=== PATIENT | female | born 1985 | race Hispanic/Latino ===

== ENCOUNTER 2021-01-08 12:37 | Emergency (ER) | payer OTHER, MEDICAID, SELFPAY ==
[2021-01-08 12:45] VITALS: BP 132/79; PULSE 90; RESP 13; TEMP 37.2; O2SAT 98; BMI 33.6
[2021-01-08 13:28] LABS: Add Manual Diff / Slide Review NO; Basophils Absolute Auto 0 /uL (0-100); Basophils Percent Auto 0.4 % (0-2); Eosinophils Absolute Auto 0 /uL (0-450); Eosinophils Percent Auto 0.3 % (2-4); Hematocrit 39.7 % (36-46); Hemoglobin 13.3 g/dL (12.0-16.0); Lymphocytes Absolute Auto 1800 /uL (1100-4500); Lymphocytes Percent Auto 36.3 % (25-40); Mean Corpuscular HGB Conc 33.5 % (30-36); Mean Corpuscular Volume 95.4 fL (80-100); Monocytes Absolute Auto 400 /uL (0-900); Monocytes Percent Auto 7.1 % (3-14); Neutrophils Absolute Auto 2800 /uL (1500-7000); Neutrophils Percent Auto 55.9 % (50-75); Platelet Count 253 X10^3/uL (150-400); Red Blood Cell Count 4.16 X10^6/uL (4.0-5.2); Red Cell Distribution Width 13.8 % (11.6-14.8)
[2021-01-08 13:31] LABS: INR 1.1 (0.9-1.3)
[2021-01-08 13:34] LABS: PTT Partial Thromboplastin Tim 34 SECONDS (26.4-36.2)
[2021-01-08 13:36] LABS: Alanine Aminotransferase 43 IU/L (<35); Albumin 4.4 g/dL (3.5-5.0); Albumin Globulin Ratio 1.4 (1.0-2.8); Alkaline Phosphatase 60 U/L (38-126); Aspartate Aminotransferase 59 IU/L (14-36); Bilirubin Total 0.1 mg/dL (0.2-1.3); Blood Urea Nitrogen 11 mg/dL (7-17); Calcium 8.8 mg/dL (8.4-10.2); Carbon Dioxide 25 mmol/L (22-32); Chloride 105 mmol/L (98-107); Estimated Glomerular Filt Rate > 60.0 mL/min (>60); Globulin 3.1 g/dL (1.7-4.1); Glucose 115 mg/dL (70-100); HEMOLYSIS < 15 (0-50); Potassium 3.6 mmol/L (3.4-5.1); Sodium 141 mmol/L (137-145); Total Protein 7.5 g/dL (6.3-8.2)
--- NOTE | 2021-01-08 13:36 | ED.GIBLEED ---
HPI - GI Bleed General Chief complaint: GI Bleed Stated complaint: Red Diarrhea, trouble breathing Time Seen by Provider: 01/08/21 13:34 Source: patient Mode of arrival: Ambulatory Limitations: no limitations History of Present Illness HPI Narrative: 35F smoker with history of fibromyalgia presents with her significant other and various complaints. She is visibly quite nervous and states she developed left anterior chest pain with radiation around to her left shoulder that started when lifting heavy objects at work. The pain is sharp and stabbing, improves with rest and worsens with motion, palpation and deep breath. She is not short of breath, she has had no cough. She is not dizzy, weak or lightheaded. She has had no fever or chills. Additionally she states she has got pain over her left kidney and had a kidney infection about 2 months ago and is concerned this may be happening again. She denies any dysuria, frequency or urgency. She has had no obvious hematuria. She denies vaginal bleeding or discharge. Finally, she states that she had a bowel movement with what appeared to be blood earlier today. She has never had this before, she has not had it again, she denies any abdominal pain, diarrhea or cramping. She denies any history of hemorrhoids. She denies the use of blood thinners. She has had no and medication or dietary change. MD complaint: blood on toilet paper Onset (ago): hour(s) Severity: mild Treatments Prior to Arrival: none Related Data Previous Rx's Medication Instructions Recorded ketorolac 10 mg PO Q6H PRN #14 tab 01/08/21 Allergies Allergy/AdvReac Type Severity Reaction Status Date / Time No Known Drug Allergies Allergy Verified 01/08/21 12:49 Review of Systems Constitutional Constitutional: Denies chills, Denies fatigue, Denies fever(s), Denies frequent falls, Denies lethargy and Denies weakness Eyes Eyes: Denies change in vision, Denies eye discharge, Denies irritation and Denies loss of vision ENT Ears, Nose, Mouth, and Throat: Denies change in voice, Denies dizziness, Denies neck pain, Denies sore throat and Denies throat swelling Cardiovascular Cardiovascular: Reports chest pain, Denies irregular heart rhythm, Denies lightheadedness, Denies palpitations, Denies dyspnea, Denies dyspnea on exertion and Denies orthopnea Respiratory Respiratory: Denies cough, Reports pain on inspiration, Denies dyspnea, Denies dyspnea on exertion and Denies wheezing Gastrointestinal Gastrointestinal: Denies abdominal pain, Denies change in bowel habits, Denies diarrhea, Denies nausea and Denies vomiting Comments: Bloody stool Musculoskeletal Musculoskeletal: Reports back pain, Denies neck pain and Denies numbness Integumentary/Breasts Skin/Breast: Denies pruritus, Denies erythema, Denies rash and Denies wounds Neurologic Neurologic: Denies behavioral changes, Denies confusion, Denies dizziness, Denies frequent falls, Denies loss of vision, Denies numbness and Denies weakness Psychiatric Psychiatric: Denies anxiety, Denies behavioral changes, Denies confusion, Denies depression, Denies homicidal ideation and Denies suicidal ideation Endocrine Endocrine: Denies fatigue, Denies flushing and Denies palpitations Hematologic/Lymphatic Hematologic/Lymphatic: Denies easy bruising Allergic/Immunologic Allergic/Immunologic: Denies urticaria, Denies throat swelling and Denies wheezing Patient History Social History Smoking Status: Current every day smoker Smoking Status: Current every day smoker alcohol intake frequency: holidays/special occasions only Substance Use Type: does not use Exam Narrative Exam Narrative: GENERAL: [35] year old patient appears stated age. Well-nourished, well-developed patient, in mild distress. HEAD: Atraumatic. Normocephalic. EYES: Pupils equal round and reactive. Extraocular motions intact. No scleral icterus. No injection or drainage. ENT: Nose without bleeding, purulent drainage. Throat without erythema, tonsillar hypertrophy or exudate. Airway patent. NECK: Trachea midline. Non tender CARDIOVASCULAR: Regular rate and rhythm without murmurs, gallops, or rubs. RESPIRATORY: Clear to auscultation. Breath sounds equal bilaterally. No wheezes, rales, or rhonchi. GASTROINTESTINAL: Abdomen soft, non-tender, nondistended. RECTAL: No bleeding, pain, hemorrhoid, fissure noted on exam. 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 BACK: Nontender without deformity or crepitance. No flank tenderness. NEURO: AOx3. SKIN: No rash or erythema of visible areas Initial Vital Signs Initial Vital Signs: Vital Signs Temperature 98.9 F 04/02/21 12:45 Pulse Rate 90 01/08/21 12:45 Respiratory Rate 13 01/08/21 12:45 Blood Pressure 132/79 01/08/21 12:45 Pulse Oximetry 98 01/08/21 12:45 Course Orders Ordered: ED Orders 01/08/21 12:52 EKG-12 Lead Stat 01/08/21 12:58 Complete Blood Count AUTO DIFF Stat Comprehensive Metabolic Panel Stat Partial Thromboplastin Time Stat Prothrombin Time INR Stat 01/08/21 13:41 Lipase Stat 01/08/21 13:51 XR chest 2V Stat 01/08/21 14:04 Urine Microscopic Stat Discontinued Medications Ketorolac Tromethamine (Ketorolac 60 Mg/2 Ml Vial) 15 mg IV NOW ONE Stop: 01/08/21 13:52 Last Admin: 01/08/21 14:09 Dose: 15 mg Documented by: ANGELO Vital Signs Vital signs: Vital Signs - 8 hr 01/08/21 12:45 01/08/21 14:46 01/08/21 14:47 Temperature 98.9 F Pulse Rate 90 80 80 Respiratory Rate 13 Blood Pressure 132/79 130/82 Pulse Oximetry 98 94 92 MDM - GI Bleed Lab Data Result diagrams: 01/08/21 12:58 01/08/21 12:58 Labs: Lab Results 01/08/21 01/08/21 01/08/21 Range/Units 12:58 12:58 12:58 WBC 5.0 (4.5-11.0) X10^3/uL RBC 4.16 (4.0-5.2) X10^6/uL Hgb 13.3 (12.0-16.0) g/dL Hct 39.7 (36-46) % MCV 95.4 (80-100) fL MCH 32.0 (26-34) PG MCHC 33.5 (30-36) % RDW 13.8 (11.6-14.8) % Plt Count 253 (150-400) X10^3/uL Neut % (Auto) 55.9 (50-75) % Lymph % (Auto) 36.3 (25-40) % [place] % (Auto) 7.1 (3-14) % Eos % (Auto) 0.3 L (2-4) % Baso % (Auto) 0.4 (0-2) % Neut # (Auto) 2800 (4850-9923) /uL Lymph # (Auto) 1800 (8292-4482) /uL [place] # (Auto) 400 (0-900) /uL Eos # (Auto) 0 (0-450) /uL Baso # (Auto) 0 (0-100) /uL PT 13.0 H (10.1-12.7) SECONDS INR 1.1 (0.9-1.3) APTT 34 (26.4-36.2) SECONDS Sodium 141 (137-145) mmol/L Potassium 3.6 (3.4-5.1) mmol/L Chloride 105 (98-107) mmol/L Carbon Dioxide 25 (22-32) mmol/L BUN 11 (7-17) mg/dL Creatinine 0.50 L (0.52-1.04) mg/dL Estimated GFR > 60.0 (>60) mL/min BUN/Creatinine Ratio 22.0 (6-22) Glucose 115 H (70-100) mg/dL Calcium 8.8 (8.4-10.2) mg/dL Total Bilirubin 0.1 L (0.2-1.3) mg/dL AST 59 H (14-36) IU/L ALT 43 H (<35) IU/L Alkaline Phosphatase 60 (38-126) U/L Total Protein 7.5 (6.3-8.2) g/dL Albumin 4.4 (3.5-5.0) g/dL Globulin 3.1 (1.7-4.1) g/dL Albumin/Globulin Ratio 1.4 (1.0-2.8) Urine RBC (0-5/HPF) Urine WBC (0-5/HPF) Ur Squamous Epith Cells (0-5/HPF) Urine Bacteria (None) Ur Culture Indicated? 01/08/21 Range/Units 14:04 WBC (4.5-11.0) X10^3/uL RBC (4.0-5.2) X10^6/uL Hgb (12.0-16.0) g/dL Hct (36-46) % MCV (80-100) fL MCH (26-34) PG MCHC (30-36) % RDW (11.6-14.8) % Plt Count (150-400) X10^3/uL Neut % (Auto) (50-75) % Lymph % (Auto) (25-40) % [place] % (Auto) (3-14) % Eos % (Auto) (2-4) % Baso % (Auto) (0-2) % Neut # (Auto) (3583-7898) /uL Lymph # (Auto) (8976-7802) /uL [place] # (Auto) (0-900) /uL Eos # (Auto) (0-450) /uL Baso # (Auto) (0-100) /uL PT (10.1-12.7) SECONDS INR (0.9-1.3) APTT (26.4-36.2) SECONDS Sodium (137-145) mmol/L Potassium (3.4-5.1) mmol/L Chloride (98-107) mmol/L Carbon Dioxide (22-32) mmol/L BUN (7-17) mg/dL Creatinine (0.52-1.04) mg/dL Estimated GFR (>60) mL/min BUN/Creatinine Ratio (6-22) Glucose (70-100) mg/dL Calcium (8.4-10.2) mg/dL Total Bilirubin (0.2-1.3) mg/dL AST (14-36) IU/L ALT (<35) IU/L Alkaline Phosphatase (38-126) U/L Total Protein (6.3-8.2) g/dL Albumin (3.5-5.0) g/dL Globulin (1.7-4.1) g/dL Albumin/Globulin Ratio (1.0-2.8) Urine RBC 1-5/hpf (0-5/HPF) Urine WBC 0-1/hpf (0-5/HPF) Ur Squamous Epith Cells 1-5 /hpf (0-5/HPF) Urine Bacteria Few (2-10) H (None) Ur Culture Indicated? Cult not indicated Point of Care Testing Test Results Negative Stool Occult Blood Negative Urine Dip Bedside Urine Glucose Negative Bedside Urine Bilirubin - Negative Bedside Urine Ketone - Negative Urine Specific [place] 1.010 Bedside Urine Occult Blood + Bedside Urine pH 6.0 Bedside Urine Protein - Negative Bedside Urine Urobilinogen - Negative Bedside Urine Nitrite - Negative Bedside Urine Leukocytes +/- 15 Esterase Imaging Data Chest x-ray: My Impression: NAP Radiologist's Impression: [address] [id number] ReportSigned Patient: Carlotta Shabazz#: [id number]: 1985Acct:[id number]/Sex: 35 / FDate of Service: 01/08/21Loc: EDAccession Number: [id number] Procedure: XR chest 2V Ordering Provider: Fantasma Arriaga D.O. PROCEDURE: XR CHEST 2V INDICATIONS: chest and back pain TECHNIQUE: 2 views of the chest were acquired. COMPARISON: None. FINDINGS: Surgical changes and devices: None. Lungs and pleura: Lungs are clear. No pleural effusions or pneumothorax. Mediastinum: Mediastinal contours are normal. Heart size is normal. Bones and chest wall: No suspicious bony abnormalities. Soft tissues appear unremarkable. IMPRESSION: No acute process. Dictated by: Maria Fernanda Crockett M.D. on 01/08/2021 at 14:10 Approved by: Maria Fernanda Crockett M.D. on 01/08/2021 at 14:11 ECG Data Interpretation: EKG is normal sinus rhythm rate [ 91] and free of any signs of ischemia or ectopy. No ST segmental elevation or depression. No T wave inversions MDM Narrative Medical decision making narrative: Patient reports bright red blood with a bowel movement in the absence of any pain or ongoing symptoms. Labs are very reassuring, her abdomen is soft rectal exam demonstrates no ongoing bleeding. Perhaps a small, resolved diverticular bleed or other ROS large ongoing bleed. Patient's left anterior chest pain sharp, stabbing, pinpoint and reproducible with palpation, inspiration and motion. EKG is nonischemic and chest x-ray is unremarkable. This is most likely inflammatory or muscular skeletal issue. Multiple causes of chest pain considered including MT, PE, pneumothorax, pneumonia, aortic dissection, and pleurisy. Patient reports no radiation, no diaphoresis, no provocation with exertion, and no vomiting. Patient and family given return precautions and questions answered to their apparent satisfaction Discharge Plan Departure Patient Disposition: Home Clinical Impression: Acute chest wall pain, Bright red rectal bleeding Instructions: DI for Atypical Chest Pain, Gastrointestinal Bleeding Activity Restrictions/Additional Instructions: *You have been diagnosed with [chest wall pain with transient painless rectal bleeding. Blood work, images and physical exam are very reassuring] *What to do: *Take medications as directed: Anti-inflammatories such as ibuprofen or Aleve will help with your chest discomfort. *Follow up with your primary care provider in 2-3 days, call for an appointment. Let them know you were seen in the Emergency Department and that we ask that you be seen in follow up *Return to ER if you should have any new, worsening or concerning symptoms, such as [increasing pain, trouble breathing, fever greater than 101 F, increased bleeding, lightheadedness or other bothersome symptoms] Prescriptions: New ketorolac 10 mg tablet 10 mg PO Q6H PRN (Reason: pain) Qty: 14 RF: 0 Stand Alone Forms: Work Release Note
--- NOTE | 2021-01-08 13:43 | PC.NURSE ---
Pt OOB walking around department. states her L upper chest is in alot of pain. reproducible and started after lifting boxes at work yesterday. EKG obtained at triage. pt tearful and getting aggressive with staff. states i dont know why im not getting the attention the vomiting girl behind me is getting. Dr Arriaga made aware.
--- NOTE | 2021-01-08 13:51 | DI.RAD.S_ITS ---
PROCEDURE: XR CHEST 2V INDICATIONS: chest and back pain TECHNIQUE: 2 views of the chest were acquired. COMPARISON: None. FINDINGS: Surgical changes and devices: None. Lungs and pleura: Lungs are clear. No pleural effusions or pneumothorax. Mediastinum: Mediastinal contours are normal. Heart size is normal. Bones and chest wall: No suspicious bony abnormalities. Soft tissues appear unremarkable. IMPRESSION: No acute process. Dictated by: Maria Fernanda Crockett M.D. on 01/08/2021 at 14:10 Approved by: Maria Fernanda Crockett M.D. on 01/08/2021 at 14:11
[2021-01-08] MEDS: KETOROLAC 60 MG/2 ML VIAL 15 MG IV (14:09)
[2021-01-08 14:45] LABS: Bacteria Urine Few (2-10); Culture Indicated Urine Cult Not Indicated; RBC Urine 1-5/HPF (0-5/HPF); Squamous Epithelial Cell Urine 1-5 /HPF (0-5/HPF); WBC Urine 0-1/HPF (0-5/HPF)
[2021-01-08 14:46] VITALS: PULSE 80; O2SAT 94
[2021-01-08 14:47] VITALS: BP 130/82; PULSE 80; O2SAT 92
[2021-01-08 23:44] LABS: Lipase 121 U/L (23-300)
== END 2021-01-08 15:05 | disposition home or self-care (01) ==
PROVIDERS: Emergency Medicine; Emergency Provider Emergency Medicine
DX: K62.5 Hemorrhage of anus and rectum (principal); R07.89 Other chest pain
CPT/HCPCS: 36415; 71046; 80053; 81003; 81015; 81025; 82272; 83690; 85025; 85610; 85730; 93005; 96374; 99284; J1885

== ENCOUNTER 2023-09-16 13:08 | Emergency (ER) | payer OTHER, MEDICAID, SELFPAY ==
[2023-09-16 13:30] VITALS: BP 105/75; PULSE 70; RESP 15; TEMP 36.8; O2SAT 97; BMI 31.6
--- NOTE | 2023-09-16 13:31 | ED.EAR ---
HPI - Ear Problem <Howard Cruz PA-C - Last Filed: 09/16/23 14:50> General Chief complaint: Upper Respiratory Symptoms Stated complaint: ear ache rt Time Seen by Provider: 09/16/23 13:30 History of Present Illness HPI Narrative: This is a 37-year-old female presents emergency department due to a mild cough, sinus congestion, runny nose, and mild right ear pain for the last 3 days. Denies any fevers, chest pain, shortness of breath, abdominal pain, or any other concerning signs or symptoms. Has not tested for COVID or flu. Related Data Previous Rx's Medication Instructions Recorded ketorolac 10 mg tablet 10 mg PO Q6H PRN pain #14 tabs 01/08/21 Allergies Allergy/AdvReac Type Severity Reaction Status Date / Time baclofen Allergy Verified 09/16/23 13:40 Review of Systems <Howard Cruz PA-C - Last Filed: 09/16/23 14:50> Review of Systems Narrative: GENERAL: Denies chills, fatigue, malaise, fever, sweats. HEENT: Reports sinus congestion, rhinorrhea, right ear pain Denies sore throat, difficulty swallowing, dizziness. RESPIRATORY: Denies dyspnea, cough, wheezing, hemoptysis, sputum. CARDIOVASCULAR: Denies chest pain, palpitations, orthopnea, edema, GASTROINTESTINAL: Denies nausea, vomiting, abdominal pain, diarrhea, constipation, melena. : Denies dysuria, frequency, incontinence, hematuria, urinary retention. MUSCULOSKELETAL: denies weakness, joint pain, or bony pain SKIN: Denies rash, skin lesions, or other NEUROLOGIC: Denies weakness, headache, numbness, change in speech, confusion, seizures, incoordination. PSYCHIATRIC: No concerning psychosocial issues. 12 point review of systems is negative except for those stated above Patient History <Howard Cruz PA-C - Last Filed: 09/16/23 14:50> Social History Smoking Status: Current every day smoker Smoking Status: Current every day smoker alcohol intake frequency: holidays/special occasions only Substance Use Type: does not use Exam <MATTHEW Garcia Last Filed: 09/16/23 14:50> Narrative Exam Narrative: GENERAL: Well-developed patient, in mild distress. HEAD: Atraumatic. Normocephalic. EYES: Pupils equal round and reactive. Extraocular motions intact. No scleral icterus. No injection or drainage. ENT: Nose without bleeding, purulent drainage. Throat without erythema, tonsillar hypertrophy or exudate. Airway patent. Right TM is not erythematous, mild dull bulging. NECK: Trachea midline. Non tender CARDIOVASCULAR: Regular rate and rhythm without murmurs, gallops, or rubs. RESPIRATORY: Clear to auscultation. Breath sounds equal bilaterally. No wheezes, rales, or rhonchi. GASTROINTESTINAL: Abdomen soft, non-tender, nondistended. EXTREMITIES: No edema or joint tenderness. BACK: Nontender without deformity or crepitance. No flank tenderness. NEURO: AOx3. SKIN: No rash or erythema of visible areas Initial Vital Signs Initial Vital Signs: Vital Signs Temperature 98.2 F 09/16/23 13:30 Pulse Rate 70 09/16/23 13:30 Respiratory Rate 15 09/16/23 13:30 Blood Pressure 105/75 09/16/23 13:30 Pulse Oximetry 97 09/16/23 13:30 Oxygen Delivery Method Room Air 09/16/23 13:30 <Frannie Edward DO - Last Filed: 09/21/23 10:00> Initial Vital Signs Initial Vital Signs: Vital Signs Temperature 98.2 F 09/16/23 13:30 Pulse Rate 70 09/16/23 13:30 Respiratory Rate 15 09/16/23 13:30 Blood Pressure 105/75 09/16/23 13:30 Pulse Oximetry 97 09/16/23 13:30 Oxygen Delivery Method Room Air 09/16/23 13:30 Course <Howard Cruz PA-C - Last Filed: 09/16/23 14:50> Orders Ordered: ED Orders 09/16/23 13:44 Respiratory Panel (Film Array) Stat Vital Signs Vital signs: Vital Signs - 8 hr 09/16/23 13:30 Temperature 98.2 F Pulse Rate 70 Respiratory Rate 15 Blood Pressure 105/75 Pulse Oximetry 97 Oxygen Delivery Method Room Air <Frannie Edward DO - Last Filed: 09/21/23 10:00> Orders Ordered: ED Orders 09/16/23 13:44 Respiratory Panel (Film Array) Stat Vital Signs Vital signs: Vital Signs - 8 hr 09/16/23 13:30 Temperature 98.2 F Pulse Rate 70 Respiratory Rate 15 Blood Pressure 105/75 Pulse Oximetry 97 Oxygen Delivery Method Room Air Medical Decision Making <Howard Cruz PA-C - Last Filed: 09/16/23 14:50> Lab Data Labs: Lab Results 09/16/23 Range/Units 13:44 Chlamy pneumoniae PCR Not detected (Not Detect) Adenovirus (PCR) Not detected (Not Detect) B.parapertussis DNA PCR Not detected (Not Detecte) Coronavirus OC43 (PCR) Not detected (Not Detect) Coronavirus HKU1 (PCR) Not detected (Not Detect) Coronavirus 229E (PCR) Not detected (Not Detect) SARS-CoV-2 (PCR) Not detected (Not Detecte) Coronavirus NL63 (PCR) Not detected (Not Detect) Human Metapneumovir PCR Not detected (Not Detect) Influenza Type A (PCR) Not detected (Not Detect) Influenza Type B (PCR) Not detected (Not Detect) M. pneumoniae (PCR) Not detected (Not Detect) Parainfluenza 1 (PCR) Not detected (Not Detect) Parainfluenza 2 (PCR) Not detected (Not Detect) Parainfluenza 3 (PCR) Not detected (Not Detect) Parainfluenza 4 (PCR) Not detected (Not Detect) RSV (PCR) Not detected (Not Detect) Entero/Rhino (PCR) Not detected (Not Detect) MDM Narrative Medical decision making narrative: MDM * differential diagnosis includes but not limited to bacterial sinusitis, pneumonia, otitis media, viral URI * Prior records reviewed: Patient was seen here 2 years ago due to chest pain. History of fibromyalgia. Chest x-ray unremarkable. Also reported having bright red blood with bowel movements. Labs were reassuring abdomen was soft. EKG and labs unremarkable. * My lab interpretation: Respiratory panel negative * My imgaing interpretation: None obtained * Clinical Decision Rules/Scores evaluated: None * Independent discussions with: None ED Course: This is a 37-year-old female presents to the emergency department due to suspected viral URI. Respiratory panel negative although suspect that symptoms should improve without antibiotic treatment over the next week or so. No evidence of otitis media on exam. Low concern for any kind of pneumonia. Recommended symptomatic management. Shared Decision Making: Discussed plan with the patient was comfortable with the plan. Social Considerations: None Disposition: Discharged to home <Frannie Edward DO - Last Filed: 09/21/23 10:00> Lab Data Labs: Lab Results 09/16/23 Range/Units 13:44 Chlamy pneumoniae PCR Not detected (Not Detect) Adenovirus (PCR) Not detected (Not Detect) B.parapertussis DNA PCR Not detected (Not Detecte) Coronavirus OC43 (PCR) Not detected (Not Detect) Coronavirus HKU1 (PCR) Not detected (Not Detect) Coronavirus 229E (PCR) Not detected (Not Detect) SARS-CoV-2 (PCR) Not detected (Not Detecte) Coronavirus NL63 (PCR) Not detected (Not Detect) Human Metapneumovir PCR Not detected (Not Detect) Influenza Type A (PCR) Not detected (Not Detect) Influenza Type B (PCR) Not detected (Not Detect) M. pneumoniae (PCR) Not detected (Not Detect) Parainfluenza 1 (PCR) Not detected (Not Detect) Parainfluenza 2 (PCR) Not detected (Not Detect) Parainfluenza 3 (PCR) Not detected (Not Detect) Parainfluenza 4 (PCR) Not detected (Not Detect) RSV (PCR) Not detected (Not Detect) Entero/Rhino (PCR) Not detected (Not Detect) Discharge Plan Departure Patient Disposition: Home Clinical Impression: Upper respiratory infection Activity Restrictions/Additional Instructions: Thank you for coming to the [facility] Emergency Department today. Your respiratory panel was negative. I I do believe that you have some other kind of viral upper respiratory tract infection that should improve over the next week or so with DayQuil, NyQuil, plenty of rest and fluids. I hope you feel better soon. Please follow up with your primary care provider within a week if your symptoms continue. If you do not have a primary care provider please contact the [facility] Resource line at [phone]. They will ask some questions about your medical history and help you get set up with a provider in the community. Prescriptions: No Action ketorolac 10 mg tablet 10 mg PO Q6H PRN (Reason: pain) Qty: 14 0RF Stand Alone Forms: Patient Portal/API, Work Release Note ED Sign-out <Frannie Edward DO - Last Filed: 09/21/23 10:00> Cosign ED Attending Cosignature Attestation: I was available for consultation.
[2023-09-16 14:41] LABS: Adenovirus Not Detected (Not Detect); B. parapertussis Not Detected (Not Detecte); Bordetella pertussis Not Detected (Not Detect); Chlamydophila pneumoniae Not Detected (Not Detect); Coronavirus 229E Not Detected (Not Detect); Coronavirus HKU1 Not Detected (Not Detect); Coronavirus NL 63 Not Detected (Not Detect); Coronavirus OC43 Not Detected (Not Detect); Human Metapneumovirus Not Detected (Not Detect); Human Rhinovirus/Enterovirus Not Detected (Not Detect); Influenza A Not Detected (Not Detect); Influenza B Not Detected (Not Detect); Mycoplasma pneumoniae Not Detected (Not Detect); Parainfluenza Virus 1 Not Detected (Not Detect); Parainfluenza Virus 2 Not Detected (Not Detect); Parainfluenza Virus 3 Not Detected (Not Detect); Parainfluenza Virus 4 Not Detected (Not Detect); Respiratory Syncytial Virus Not Detected (Not Detect); SARS- CoV-2 Not Detected (Not Detecte)
[2023-09-16 15:24] VITALS: BP 102/56; PULSE 56; RESP 18; TEMP 36.6; O2SAT 98
== END 2023-09-16 15:34 | disposition home or self-care (01) ==
PROVIDERS: Emergency Provider Physician Assistant Medical
DX: J06.9 Acute upper respiratory infection, unspecified (principal); F17.200 Nicotine dependence, unspecified, uncomplicated
CPT/HCPCS: 87633; 99282

== ENCOUNTER 2023-10-23 18:23 | Emergency (ER) | payer OTHER, MEDICAID, SELFPAY ==
[2023-10-23 18:25] VITALS: BP 141/72; PULSE 94; RESP 16; TEMP 36.4; O2SAT 96; BMI 34.6
--- NOTE | 2023-10-23 18:28 | DI.RAD.S_ITS ---
PROCEDURE: XR SHOULDER RT MIN 2V INDICATIONS: pain, no injury TECHNIQUE: 3 views of the shoulder were acquired. COMPARISON: CR, SHOULDER MIN 2VW (RT), 03/06/2015, 12:36. FINDINGS: Bones: No fractures or dislocations. No suspicious bony lesions. Visualized ribs appear intact. Soft tissues: A calcific density over the humeral head suggesting rotator cuff calcific tendinitis. IMPRESSION: 1. No acute bony abnormality. 2. Question rotator cuff calcific tendinitis. Consider MRI for further evaluation if clinically indicated. Dictated by: Giulia Lu M.D. on 10/23/2023 at 19:12 Approved by: Giulia Lu M.D. on 10/23/2023 at 19:34
--- NOTE | 2023-10-23 20:19 | ED_ITS ---
HPI - Extremity Problem General Chief complaint: Extremity Problem,Nontraumatic Stated complaint: Rt shoulder pain Time Seen by Provider: 10/23/23 20:13 Source: patient Mode of arrival: Ambulatory History of Present Illness HPI Narrative: Patient is a healthy 38-year-old female who presents today with ongoing right shoulder pain. It she says it has been there for about month. She denies any injury. She sometimes has tingling. Pain is getting significantly worse. She takes Tylenol but it makes her nauseous so she takes anti nausea medication with it. She does not really take ibuprofen. She has an appointment with PCP tomorrow Related Data Previous Rx's Medication Instructions Recorded ketorolac 10 mg tablet 10 mg PO Q6H PRN pain #14 tabs 01/08/21 hydrocodone 5 mg-acetaminophen 325 1 tab PO Q6H PRN pain #10 tabs 10/23/23 mg tablet ondansetron 4 mg disintegrating 4 mg PO Q8H PRN nausea and 10/23/23 tablet vomiting #10 tabs Allergies Allergy/AdvReac Type Severity Reaction Status Date / Time baclofen Allergy Hallucinati Verified 10/23/23 18:25 ng Patient History Social History Smoking Status: Current every day smoker Smoking Status: Current every day smoker alcohol intake frequency: holidays/special occasions only Substance Use Type: does not use Exam Initial Vital Signs Initial Vital Signs: Vital Signs Temperature 97.5 F L 10/23/23 18:25 Pulse Rate 94 H 10/23/23 18:25 Respiratory Rate 16 10/23/23 18:25 Blood Pressure 141/72 H 10/23/23 18:25 Pulse Oximetry 96 10/23/23 18:25 Oxygen Delivery Method Room Air 10/23/23 18:25 GENERAL: Appears uncomfortable CARDIOVASCULAR: peripheral pulses in tact, cap refill <2 sec EXTREMITIES: Normal range of motion, no clubbing or edema. 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 Normal gait and speech. SKIN: Warm, dry, no petechiae, no rashes or lesions. Course Orders Ordered: ED Orders 10/23/23 18:28 XR shoulder RT min 2V Stat Discontinued Medications Hydrocodone Bitart/Acetaminophen (Hydrocodone/Acet 5/325 Prepack) 1 bottle MISC DIRECTED ONE Stop: 10/23/23 20:26 Last Admin: 10/23/23 20:38 Dose: 1 bottle Documented By: LUCIO Ketorolac Tromethamine (Ketorolac 30 Mg/Ml Vial) 30 mg IM NOW ONE Stop: 10/23/23 20:26 Last Admin: 10/23/23 20:38 Dose: 30 mg Documented By: LUCIO Ondansetron HCl (Ondansetron 4 Mg Odt Prepack) 1 bottle MISC DIRECTED ONE Stop: 10/23/23 20:29 Last Admin: 10/23/23 20:38 Dose: 1 bottle Documented By: LUCIO Vital Signs Vital signs: Vital Signs - 8 hr 10/23/23 18:25 Temperature 97.5 F L Pulse Rate 94 H Respiratory Rate 16 Blood Pressure 141/72 H Pulse Oximetry 96 Oxygen Delivery Method Room Air MDM - Extremity (Nontraumatic) Imaging Data Extremity x-ray #1: Radiologist's Impression: PROCEDURE: XR SHOULDER RT MIN 2V INDICATIONS: pain, no injury TECHNIQUE: 3 views of the shoulder were acquired. COMPARISON: CR, SHOULDER MIN 2VW (RT), 03/06/2015, 12:36. FINDINGS: Bones: No fractures or dislocations. No suspicious bony lesions. Visualized ribs appear intact. Soft tissues: A calcific density over the humeral head suggesting rotator cuff calcific tendinitis. IMPRESSION: 1. No acute bony abnormality. 2. Question rotator cuff calcific tendinitis. Consider MRI for further evaluation if clinically indicated. Dictated by: Giulia Lu M.D. on 10/23/2023 at 19:12 [facility] Narrative Medical decision making narrative: Patient healthy 38-year-old female who presents with chronic ongoing right shoulder pain. No significant injury x-ray has been reviewed it does show calcific tendinitis. She is point with PCP tomorrow may need outpatient MRI or orthopedic follow-up. At this time pain control only. She is given Toradol and Beulah here in the ED. Discharge Plan Departure Patient Disposition: Home Clinical Impression: Calcific shoulder tendinitis, Acute shoulder pain Instructions: DI for Calcific Tendonitis of the Shoulder Activity Restrictions/Additional Instructions: *You have been diagnosed with right shoulder calcific tendinitis *What to do: At this time increase activity as tolerated recommend outpatient MRI. *Continue to take medications as directed Motrin 600 mg every 6 hours if needed for bogi-ei-zitptria Beulah 1 tablet every 6 hours only if needed for severe pain Zofran 4 mg every 8 hours if needed for nausea or vomiting *Follow up with your primary care provider in 2-3 days or call [phone] *Return to ER if you should have increasing pain numbness tingling weakness or any new, worsening or concerning symptoms CONTROLLED SUBSTANCE DISCHARGE (Narcotoic/benzodiazepine/Flexeril/Phenergan) 1. You have been prescribed narcotic medications, it does have acetaminophen/Tylenol/paracetamol in it, DO NOT TAKE MORE THAN 4,00mg in 24 hours of Tylenol. TRAMADOL DOES NOT CONTAIN TYLENOL 2. Please understand that we cannot provide further refills of narcotics, benzodiazepines or controlled substances through the ED and her pain management will need to be through your provider. 3. While on these medications you cannot drive or operate heavy machinery. 4. You cannot sign legal documents or perform any duties such as this. 5. As long as you're taking opiate pain medications he should also be taking a stool softener such as Colace, Dulcolax, MiraLAX or prune juice, to help avoid constipation. Prescriptions: New hydrocodone-acetaminophen 5-325 mg tablet 1 tab PO Q6H PRN (Reason: pain) Qty: 10 0RF ondansetron 4 mg tablet,disintegrating 4 mg PO Q8H PRN (Reason: nausea and vomiting) Qty: 10 0RF No Action ketorolac 10 mg tablet 10 mg PO Q6H PRN (Reason: pain) Qty: 14 0RF Stand Alone Forms: Patient Portal/API
[2023-10-23] MEDS: HYDROCODONE/ACET 5/325 PREPACK 1 BOTTLE MISC (20:38)
[2023-10-23] MEDS: KETOROLAC 30 MG/ML VIAL IM (20:38)
[2023-10-23] MEDS: ONDANSETRON 4 MG ODT PREPACK 1 BOTTLE MISC (20:38)
== END 2023-10-23 20:44 | disposition home or self-care (01) ==
PROVIDERS: Emergency Provider Emergency Medicine
DX: M75.31 Calcific tendinitis of right shoulder (principal); M25.511 Pain in right shoulder
CPT/HCPCS: 73030; 96372; 99283; J1885

== ENCOUNTER 2023-12-05 20:58 | Emergency (ER) | payer OTHER, MEDICAID, SELFPAY ==
[2023-12-05 21:03] VITALS: BP 107/66; PULSE 99; RESP 18; TEMP 36.3; O2SAT 98; BMI 31.6
--- NOTE | 2023-12-05 22:43 | ED.RECABL ---
HPI - Recheck/Abnormal Lab/Rx General Chief Complaint: Recheck/Abnormal Lab/Rx Stated Complaint: rt shoulder and lt hip pain Time Seen by Provider: 12/05/23 22:29 Source: patient Mode of arrival: Ambulatory History of Present Illness HPI narrative: Patient is a 38-year-old female here for evaluation of right shoulder pain and now left hip pain. States his left hip pain is most likely because she is having to lay on her left side when she sleeps because of the discomfort in her shoulder. She was seen here in the emergency department had x-rays. Was told that she had calcified areas in her shoulder. She is talked with her primary doctor. Has a follow-up with physical therapy but is not for several weeks. Tried to contact them today about pain medication but was unable to get in touch with them. Related Data Previous Rx's Medication Instructions Recorded ketorolac 10 mg tablet 10 mg PO Q6H PRN pain #14 tabs 01/08/21 hydrocodone 5 mg-acetaminophen 325 1 tab PO Q6H PRN pain #10 tabs 10/23/23 mg tablet ondansetron 4 mg disintegrating 4 mg PO Q8H PRN nausea and 10/23/23 tablet vomiting #10 tabs Allergies Allergy/AdvReac Type Severity Reaction Status Date / Time baclofen Allergy Hallucinati Verified 12/05/23 21:03 ng Review of Systems Constitutional Constitutional: Reports system reviewed and no additional complaints, except as documented Musculoskeletal Musculoskeletal: Reports system reviewed and no additional complaints, except as documented Integumentary/Breasts Skin/Breast: Reports system reviewed and no additional complaints, except as documented Patient History Social History Smoking Status: Current every day smoker Smoking Status: Current every day smoker alcohol intake frequency: holidays/special occasions only Substance Use Type: does not use Exam Initial Vital Signs Initial Vital Signs: Vital Signs Temperature 97.3 F L 12/05/23 21:03 Pulse Rate 99 H 12/05/23 21:03 Respiratory Rate 18 12/05/23 21:03 Blood Pressure 107/66 12/05/23 21:03 Pulse Oximetry 98 12/05/23 21:03 Oxygen Delivery Method Room Air 12/05/23 21:03 HENAR Head: normal to inspection and normocephalic Skin General: no rashes or lesions noted Extrem Other: Discomfort with palpation of the superior and posterior right shoulder and over the right trapezius. Course Orders Ordered: Discontinued Medications Hydrocodone Bitart/Acetaminophen (Hydrocodone/Acet 5/325 Tablet) 1 tab PO NOW ONE Stop: 12/05/23 22:44 Last Admin: 12/05/23 22:59 Dose: 1 tab Documented By: SOWMYA Hydrocodone Bitart/Acetaminophen (Hydrocodone/Acet 5/325 Prepack) 1 bottle MISC DIRECTED ONE Stop: 12/05/23 22:44 Last Admin: 12/05/23 23:00 Dose: 1 bottle Documented By: SOWMYA Cyclobenzaprine HCl (Cyclobenzaprine 10 Mg Tablet) 10 mg PO NOW ONE Stop: 12/05/23 22:44 Last Admin: 12/05/23 23:00 Dose: 10 mg Documented By: SOWMYA Cyclobenzaprine HCl (Cyclobenzaprine 10 Mg Prepack) 1 bottle MISC DIRECTED ONE Stop: 12/05/23 22:44 Last Admin: 12/05/23 23:00 Dose: 1 bottle Documented By: SOWMYA Vital Signs Vital signs: Vital Signs - 8 hr 12/05/23 21:03 12/05/23 23:38 Temperature 97.3 F L Pulse Rate 99 H 76 Respiratory Rate 18 20 Blood Pressure 107/66 111/79 Pulse Oximetry 98 99 Oxygen Delivery Method Room Air Room Air MDM - Recheck/Abnormal Lab/Rx MDM Narrative Medical decision making narrative: Patient is ambulatory. Has had x-rays recently. No indication to repeat any of those x-rays. Left hip painful because she has been laying on it does for right shoulder pain. Has discomfort over the right trapezius muscle and over the superior portion of the right shoulder. Will provide symptom treatment for now. Advised that she contact her primary doctor for long-term symptoms treatment. Will need to follow-up with physical therapy. Discharge Plan Departure Patient Disposition: Home Clinical Impression: Pain in right shoulder Instructions: DI for Shoulder Pain Activity Restrictions/Additional Instructions: Recommend that you continue to take all of your medications as directed. You do need to contact your primary care doctor for further pain medication if needed. Keep all of your scheduled medical appointments. Prescriptions: No Action ketorolac 10 mg tablet 10 mg PO Q6H PRN (Reason: pain) Qty: 14 0RF hydrocodone-acetaminophen 5-325 mg tablet 1 tab PO Q6H PRN (Reason: pain) Qty: 10 0RF ondansetron 4 mg tablet,disintegrating 4 mg PO Q8H PRN (Reason: nausea and vomiting) Qty: 10 0RF Referrals: Mason Jeong MD [Primary Care Provider] - Stand Alone Forms: Patient Portal/API
[2023-12-05] MEDS: HYDROCODONE/ACET 5/325 TABLET 1 TAB PO (22:59)
[2023-12-05] MEDS: CYCLOBENZAPRINE 10 MG PREPACK 1 BOTTLE MISC (23:00)
[2023-12-05] MEDS: CYCLOBENZAPRINE 10 MG TABLET PO (23:00)
[2023-12-05] MEDS: HYDROCODONE/ACET 5/325 PREPACK 1 BOTTLE MISC (23:00)
[2023-12-05 23:38] VITALS: BP 111/79; PULSE 76; RESP 20; O2SAT 99
== END 2023-12-05 23:37 | disposition home or self-care (01) ==
PROVIDERS: Emergency Provider Emergency Medicine; PCP Family Medicine Sports Medicine
DX: M25.511 Pain in right shoulder (principal); M25.552 Pain in left hip
CPT/HCPCS: 99283

== ENCOUNTER 2024-02-27 21:47 | Emergency (ER) | payer OTHER, MEDICAID, SELFPAY ==
[2024-02-27 22:04] VITALS: BP 117/56; PULSE 73; RESP 16; TEMP 36.6; O2SAT 96; BMI 32.1
--- NOTE | 2024-02-27 22:11 | DI.RAD.S_ITS ---
PROCEDURE: XR SHOULDER RT MIN 2V INDICATIONS: pain TECHNIQUE: Three views of the shoulder were acquired. COMPARISON: [facility], CR, XR SHOULDER 2+ VIEWS RIGHT, 02/26/2024, 15:38. [facility], CR, XR SHOULDER RT MIN 2V, 10/23/2023, 18:48. FINDINGS: Bones: No fractures or dislocations. No suspicious bony lesions. Visualized ribs appear intact. Soft tissues: No suspicious soft tissue calcifications. IMPRESSION: No acute bony abnormality. Dictated by: Kelli Bejarano M.D. on 02/27/2024 at 22:56 Approved by: Kelli Bejarano M.D. on 02/27/2024 at 22:57
--- NOTE | 2024-02-27 22:34 | ED.GENADULT ---
HPI - General Adult General Chief complaint: Extremity Injury, Upper Stated complaint: rt shoulder pain Time Seen by Provider: 02/27/24 21:54 Source: patient Mode of arrival: Ambulatory History of Present Illness HPI narrative: 38-year-old female with a known history of right shoulder discomfort. Has been seen by physical therapy. Has a prescription for diclofenac pills prescribed by her primary doctor. She states that she bumped her right shoulder on a door frame this evening and since that time has had increase in pain and tingling down her arm. She also states that the diclofenac has been causing quite a bit of stomach upset. She is tried to take it with food without any improvement. Related Data Previous Rx's Medication Instructions Recorded ketorolac 10 mg tablet 10 mg PO Q6H PRN pain #14 tabs 01/08/21 hydrocodone 5 mg-acetaminophen 325 1 tab PO Q6H PRN pain #10 tabs 10/23/23 mg tablet ondansetron 4 mg disintegrating 4 mg PO Q8H PRN nausea and 10/23/23 tablet vomiting #10 tabs Allergies Allergy/AdvReac Type Severity Reaction Status Date / Time baclofen Allergy Hallucinati Verified 12/05/23 21:03 ng Review of Systems Constitutional Constitutional: Reports system reviewed and no additional complaints, except as documented Musculoskeletal Musculoskeletal: Reports system reviewed and no additional complaints, except as documented Integumentary/Breasts Skin/Breast: Reports system reviewed and no additional complaints, except as documented Neurologic Neurologic: Reports system reviewed and no additional complaints, except as documented Patient History Social History Smoking Status: Current every day smoker Smoking Status: Current every day smoker alcohol intake frequency: holidays/special occasions only Substance Use Type: marijuana Exam Initial Vital Signs Initial Vital Signs: Vital Signs Temperature 97.9 F 02/27/24 22:04 Pulse Rate 73 02/27/24 22:04 Respiratory Rate 16 02/27/24 22:04 Blood Pressure 117/56 L 02/27/24 22:04 Pulse Oximetry 96 02/27/24 22:04 Oxygen Delivery Method Room Air 02/27/24 22:04 HENMT Head: normal to inspection and normocephalic Skin General: no rashes or lesions noted Neuro Sensory Exam: no sensory deficits noted Extrem Other: No gross deformities Course Orders Ordered: ED Orders 02/27/24 22:11 XR shoulder RT min 2V Stat Hydrocodone Bitart/Acetaminophen (Hydrocodone/Acet 5/325 Tablet) 1 tab PO NOW ONE Stop: 02/27/24 22:48 Discontinued Medications Hydrocodone Bitart/Acetaminophen (Hydrocodone/Acet 5/325 Prepack) 1 bottle MISC DIRECTED ONE Stop: 02/27/24 22:35 Last Admin: 02/27/24 22:45 Dose: 1 bottle Documented By: AIDA Vital Signs Vital signs: Vital Signs - 8 hr 02/27/24 22:04 Temperature 97.9 F Pulse Rate 73 Respiratory Rate 16 Blood Pressure 117/56 L Pulse Oximetry 96 Oxygen Delivery Method Room Air Medical Decision Making Imaging Data Extremity x-ray #1: My Impression: No fractures or dislocations noted MDM Narrative Medical decision making narrative: No fractures or dislocations noted on the x-ray of the right shoulder. Will prescribe a prepack of pain medication although she was advised she needs to contact her primary doctor for a follow-up and discuss medication changes. Discharge Plan Departure Patient Disposition: Home Clinical Impression: Pain in right shoulder Instructions: How To Perform RICE (Rest, Ice, Compress, Elevate) Activity Restrictions/Additional Instructions: Recommend that you contact your primary care doctor tomorrow who discuss changing your medications since the 1 that you were prescribed is causing the abdominal pain. There were no fractures noted on the x-rays you can use your right shoulder as tolerated. Prescriptions: No Action ketorolac 10 mg tablet 10 mg PO Q6H PRN (Reason: pain) Qty: 14 0RF hydrocodone-acetaminophen 5-325 mg tablet 1 tab PO Q6H PRN (Reason: pain) Qty: 10 0RF ondansetron 4 mg tablet,disintegrating 4 mg PO Q8H PRN (Reason: nausea and vomiting) Qty: 10 0RF Referrals: Mason Jeong MD [Primary Care Provider] - Stand Alone Forms: Patient Portal/API
[2024-02-27] MEDS: HYDROCODONE/ACET 5/325 PREPACK 1 BOTTLE MISC (22:45)
[2024-02-27 22:48] VITALS: BP 117/56; PULSE 63; RESP 18; O2SAT 96
[2024-02-27] MEDS: HYDROCODONE/ACET 5/325 TABLET 1 TAB PO (22:49)
== END 2024-02-27 22:52 | disposition home or self-care (01) ==
PROVIDERS: Emergency Provider Emergency Medicine; PCP Family Medicine Sports Medicine
DX: M25.511 Pain in right shoulder (principal)
CPT/HCPCS: 73030; 99282; 99283

== ENCOUNTER 2024-08-01 11:49 | Emergency (ER) | payer OTHER, MEDICAID, SELFPAY ==
[2024-08-01 12:04] VITALS: BP 132/78; PULSE 60; RESP 14; TEMP 36.1; O2SAT 100; BMI 33.6
--- NOTE | 2024-08-01 12:08 | DI.RAD.S_ITS ---
PROCEDURE: XR ELBOW RT MIN 3V INDICATIONS: arm pain after hitting elbow TECHNIQUE: 3 views of the elbow were acquired. COMPARISON: None. FINDINGS: Bones: No fractures or dislocations. No suspicious bony lesions. Soft tissues: No elbow joint effusion. No suspicious soft tissue calcifications. IMPRESSION: No acute bony abnormality or significant joint effusion. Dictated by: Kuldip Guillermo M.D. on 08/01/2024 at 12:46 Approved by: Kuldip Guillermo M.D. on 08/01/2024 at 12:49
--- NOTE | 2024-08-01 12:35 | ED_ITS ---
HPI - Extremity Injury (Upper) <Ayaka Jerez PA-C - Last Filed: 08/01/24 13:45> General Chief Complaint: Extremity Injury, Upper Stated Complaint: r arm pain/injury Time Seen by Provider: 08/01/24 12:35 Source: patient Mode of arrival: Ambulatory History of Present Illness HPI narrative: Patient is a very pleasant 38-year-old female presents to the emergency department with the extreme right upper extremity discomfort and pain. Known rotator cuff pathology, currently has an appointment with Orthopedics to follow up to discuss possible surgical intervention, who struck her right elbow on the corner of a metal door frame today who is now having extreme discomfort and pain radiating shooting shocking pains up and down the right upper extremity to the point where she is in tears. This happened right prior to her being seen here in the emergency department. No treatment prior to being seen here in the emergency department. Patient is beside herself, has been crying, she is just in agony, who is having sharp shooting pains and some numbness and tingling down the extremity. And limited range of motion due to it exacerbates the pain and discomfort. No other further complaints. Related Data Previous Rx's Medication Instructions Recorded ketorolac 10 mg tablet 10 mg PO Q6H PRN pain #14 tabs 01/08/21 hydrocodone 5 mg-acetaminophen 325 1 tab PO Q6H PRN pain #10 tabs 10/23/23 mg tablet ondansetron 4 mg disintegrating 4 mg PO Q8H PRN nausea and 10/23/23 tablet vomiting #10 tabs hydrocodone 5 mg-acetaminophen 325 1 tab PO Q4-6H PRN pain #14 tabs 08/01/24 mg tablet Allergies Allergy/AdvReac Type Severity Reaction Status Date / Time baclofen Allergy Hallucinati Verified 08/01/24 12:04 ng Review of Systems <Ayaka Jerez PA-C - Last Filed: 08/01/24 13:45> Review of Systems Narrative: Negative except as above Musculoskeletal Comments: Extreme sharp shooting pains numbness and tingling to the right upper extremity with a known motor titer cuff injury. Patient History <Ayaka Jerez PA-C - Last Filed: 08/01/24 13:45> Social History Smoking Status: Current every day smoker Smoking Status: Current every day smoker alcohol intake frequency: holidays/special occasions only Substance Use Type: marijuana Exam <Ayaka Jerez PA-C - Last Filed: 08/01/24 13:45> Initial Vital Signs Initial Vital Signs: Vital Signs Temperature 97.0 F L 08/01/24 12:04 Pulse Rate 60 08/01/24 12:04 Respiratory Rate 14 08/01/24 12:04 Blood Pressure 132/78 08/01/24 12:04 Pulse Oximetry 100 08/01/24 12:04 Oxygen Delivery Method Room Air 08/01/24 12:04 Reviewed Const General: cooperative, healthy appearing, well developed, well groomed, acute distress, in distress and other (You can tell that the patient has been extremely emotional distraught, ) Eyes General: Yes appearance normal, both eyes and all related structures Pupils: PERRL EOM: EOM intact bilaterally Skin Other: Warm pink and dry, there is no trauma noted to the elbow, there is no bruising, there was no ecchymosis Neuro Other: Cranial nerves are grossly intact Extrem Other: Range of motion, strength, pulses, cap refill preserved in the lower extremities in the left upper extremities. Limited range of motion of the right upper extremity due to sharp shooting pains, pulses are present, cap refill is prese rved. There is no obvious signs of deformity, no soft tissue swelling, no bruising, no signs of infection, range of motion is limited due to pain, x-ray is negative for any acute fracture. Patient has a sling at home. Currently patient is extremely emotional due to the discomfort and pain, I feel like this also has a do with the fact that she knows that she possibly might need surgery on her left shoulder which is maybe driving a little bit of the emotionality associated with today's injury. I think the patient is just really overwhelmed and worried about possibility of having shoulder surgery. Her exam is negative for any substantial findings, she has a contusion to the ulnar nerve which causes these type of symptoms and discomfort and pain. These will resolve on their own with supportive therapy home. Psych Other: Her parents, mental status, speech, movement, mood, affect, attitude all within normal limits. Patient seems extremely distraught, perhaps mildly histrionic over this injury. However appears as if she is slightly overwhelmed, already has an injury to the right shoulder, just started a new job, it appears if she is mildly overwhelmed. Thought content, judgment seem to be intact. <Pippa Barraza MD - Last Filed: 08/01/24 18:54> Initial Vital Signs Initial Vital Signs: Vital Signs Temperature 97.0 F L 08/01/24 12:04 Pulse Rate 60 08/01/24 12:04 Respiratory Rate 14 08/01/24 12:04 Blood Pressure 132/78 08/01/24 12:04 Pulse Oximetry 100 08/01/24 12:04 Oxygen Delivery Method Room Air 08/01/24 12:04 Scores <Ayaka Jerez PA-C - Last Filed: 08/01/24 13:45> GCS Citation: 15 Course <Ayaka Jerez PA-C - Last Filed: 08/01/24 13:45> Orders Ordered: ED Orders 08/01/24 12:08 XR elbow RT min 3V Stat Discontinued Medications Ketorolac Tromethamine (Ketorolac 30 Mg/Ml Vial) 30 mg IM NOW ONE Stop: 08/01/24 13:04 Last Admin: 08/01/24 13:14 Dose: 30 mg Documented By: RENÉE Oxycodone HCl (Oxycodone Ir 5 Mg Tablet) 5 mg PO NOW ONE Stop: 08/01/24 13:04 Last Admin: 08/01/24 13:14 Dose: 5 mg Documented By: RENÉE Vital Signs Vital signs: Vital Signs - 8 hr 08/01/24 12:04 08/01/24 13:31 Temperature 97.0 F L Pulse Rate 60 61 Respiratory Rate 14 15 Blood Pressure 132/78 129/77 Pulse Oximetry 100 100 Oxygen Delivery Method Room Air Room Air <Pippa Barraza MD - Last Filed: 08/01/24 18:54> Orders Ordered: ED Orders 08/01/24 12:08 XR elbow RT min 3V Stat Discontinued Medications Ketorolac Tromethamine (Ketorolac 30 Mg/Ml Vial) 30 mg IM NOW ONE Stop: 08/01/24 13:04 Last Admin: 08/01/24 13:14 Dose: 30 mg Documented By: RENÉE Oxycodone HCl (Oxycodone Ir 5 Mg Tablet) 5 mg PO NOW ONE Stop: 08/01/24 13:04 Last Admin: 08/01/24 13:14 Dose: 5 mg Documented By: RENÉE Vital Signs Vital signs: Vital Signs - 8 hr 08/01/24 12:04 08/01/24 13:31 Temperature 97.0 F L Pulse Rate 60 61 Respiratory Rate 14 15 Blood Pressure 132/78 129/77 Pulse Oximetry 100 100 Oxygen Delivery Method Room Air Room Air MDM - Extremity Injury (Upper) <Ayaka Jerez PA-C - Last Filed: 08/01/24 13:45> Imaging Data Extremity x-ray #1: Radiologist's Impression: [address] [address] XRay Report Signed Patient: Carlotta Aly MR#: [id number] : 1985 Acct:[id number] Age/Sex: 38 / F Date of Service: 08/01/24 Loc: ED Accession Number: [id number] Procedure: XR elbow RT min 3V Ordering Provider: Pippa Barraza MD PROCEDURE: XR ELBOW RT MIN 3V INDICATIONS: arm pain after hitting elbow TECHNIQUE: 3 views of the elbow were acquired. COMPARISON: None. FINDINGS: Bones: No fractures or dislocations. No suspicious bony lesions. Soft tissues: No elbow joint effusion. No suspicious soft tissue calcifications. IMPRESSION: No acute bony abnormality or significant joint effusion. Dictated by: Kuldip Guillermo M.D. on 08/01/2024 at 12:46 Approved by: Kuldip Guillermo M.D. on 08/01/2024 at 12:49 [facility] Narrative Medical decision making narrative: 38-year-old female presents to the emergency department with severe right elbow pain after contusing her elbow on the corner of a metal frame. X-rays negative for any acute fractures. She has a contusion to the right ulnar nerve, she has signs and symptoms of sharp shooting pains and numbness and tingling to the extremity. She has a known rotator cuff injury, shows an appointment with orthopedics for possible arthroscopic surgical intervention that she is extremely worried about. Here due to extreme discomfort and pain not relieved by [id number] ibuprofen and Tylenol. She has a sling at home. I feel that the patient is just really super overwhelmed with her ongoing shoulder injury and now with his elbow contusion and ulnar nerve contusion she just seems like she is little bit overwhelmed. Patient will be given Toradol shot here in the emergency department p.o. oxycodone and will be discharged to follow up with Orthopedics. She has a sling at home she can wear, she has been giving supportive therapy education, ED precautions. A prescription has been sent to her pharmacy. Differential diagnosis; known internal derangement of the left shoulder, known rotator cuff injury, ulnar nerve contusion. Discharge Plan Departure Patient Disposition: Home Clinical Impression: Contusion of right ulnar nerve Qualifiers: Encounter type: initial encounter Qualified Code(s): S54.01XA - Injury of ulnar nerve at forearm level, right arm, initial encounter Activity Restrictions/Additional Instructions: Ice Wear your sling Please poultry picker the prescription Please follow up with orthopedist Your x-rays negative for acute fracture Contusion unfortunately to the olecranon nerve This causes electro fine kind of shocking sensations up and down the arm, and cause numbness and tingling to the arm. I am sorry that you are feeling poorly. Prescriptions: New hydrocodone-acetaminophen 5-325 mg tablet 1 tab PO Q4-6H PRN (Reason: pain) Qty: 14 0RF No Action ketorolac 10 mg tablet 10 mg PO Q6H PRN (Reason: pain) Qty: 14 0RF hydrocodone-acetaminophen 5-325 mg tablet 1 tab PO Q6H PRN (Reason: pain) Qty: 10 0RF ondansetron 4 mg tablet,disintegrating 4 mg PO Q8H PRN (Reason: nausea and vomiting) Qty: 10 0RF Referrals: Mason Jeong MD [Primary Care Provider] - Stand Alone Forms: Patient Portal/API ED Sign-out <Pippa Barraza MD - Last Filed: 08/01/24 18:54> Cosign ED Attending Coslisaature Attestation: I was immediately available in the department for consultation throughout this patient's visit. Pippa Barraza MD
[2024-08-01] MEDS: OXYCODONE IR 5 MG TABLET PO (13:14)
[2024-08-01] MEDS: KETOROLAC 30 MG/ML VIAL IM (13:14)
[2024-08-01 13:31] VITALS: BP 129/77; PULSE 61; RESP 15; O2SAT 100
== END 2024-08-01 13:33 | disposition home or self-care (01) ==
PROVIDERS: Emergency Provider Physician Assistant; PCP Family Medicine Sports Medicine
DX: S54.01XA Injury of ulnar nerve at forearm level, right arm, initial encounter (principal); W22.8XXA Striking against or struck by other objects, initial encounter
CPT/HCPCS: 73080; 96372; 99283; J1885

== ENCOUNTER 2024-12-11 15:13 | Emergency (ER) | payer OTHER, SELFPAY ==
[2024-12-11 15:16] VITALS: BP 135/91; PULSE 84; RESP 18; TEMP 36.6; O2SAT 96; BMI 35.4
--- NOTE | 2024-12-11 15:21 | ED_ITS ---
<Statement entered by Gabriele Mayers DO - 12/11/24 15:40> Dr. Mayers: I was immediately available in the department for consultation. I did not actually see the patient. HPI - Dental/Oral General Chief complaint: Dental/Oral Stated complaint: dental pain Time Seen by Provider: 12/11/24 15:20 Source: patient Mode of arrival: Ambulatory History of Present Illness HPI Narrative: this is a 39-year-old female presenting to the emergency department due to left lower dental pain over the last week or so. Denies any fevers, nausea, vomiting, or other concerning signs or symptoms. Does state that she has a h istory reported of poordentition in his working to establish with a dentist. Denies any difficulty breathing or swallowing Related Data Previous Rx's Medication Instructions Recorded ketorolac 10 mg tablet 10 mg PO Q6H PRN pain #14 tabs 01/08/21 hydrocodone 5 mg-acetaminophen 325 1 tab PO Q6H PRN pain #10 tabs 10/23/23 mg tablet ondansetron 4 mg disintegrating 4 mg PO Q8H PRN nausea and 10/23/23 tablet vomiting #10 tabs hydrocodone 5 mg-acetaminophen 325 1 tab PO Q4-6H PRN pain #14 tabs 08/01/24 mg tablet amoxicillin 875 mg-potassium 1 tab PO BID #20 tabs 12/11/24 clavulanate 125 mg tablet Allergies Allergy/AdvReac Type Severity Reaction Status Date / Time baclofen Allergy Hallucinati Verified 08/01/24 12:04 ng Review of Systems Review of Systems Narrative: GENERAL: Denies chills, fatigue, malaise, fever, sweats. HEENT: reports dental pain Denies sinus pain, ear pain, sore throat, difficulty swallowing, dizziness. RESPIRATORY: Denies dyspnea, cough, wheezing, hemoptysis, sputum. CARDIOVASCULAR: Denies chest pain, palpitations, orthopnea, edema, GASTROINTESTINAL: Denies nausea, vomiting, abdominal pain, diarrhea, constipation, melena. : Denies dysuria, frequency, incontinence, hematuria, urinary retention. MUSCULOSKELETAL: denies weakness, joint pain, or bony pain SKIN: Denies rash, skin lesions, or other NEUROLOGIC: Denies weakness, headache, numbness, change in speech, confusion, seizures, incoordination. PSYCHIATRIC: No concerning psychosocial issues. 12 point review of systems is negative except for those stated above Patient History Social History Smoking Status: Former smoker Smoking Status: Former smoker alcohol intake frequency: holidays/special occasions only Exam Narrative Exam Narrative: GENERAL: Well-developed patient, in mild distress. HEAD: Atraumatic. Normocephalic. EYES: Pupils equal round and reactive. Extraocular motions intact. No scleral icterus. No injection or drainage. ENT: Nose without bleeding, purulent drainage. Throat without erythema, tonsillar hypertrophy or exudate. Airway patent. poor dentition. Missing tooth the left lower molars. Some erythema to the left lower gumline. No evidence of any periodontal abscesses. NECK: Trachea midline. Non tender EXTREMITIES: No edema or joint tenderness. NEURO: AOx3. SKIN: No rash or erythema of visible areas Initial Vital Signs Initial Vital Signs: Vital Signs Temperature 97.9 F 12/11/24 15:16 Pulse Rate 84 12/11/24 15:16 Respiratory Rate 18 12/11/24 15:16 Blood Pressure 135/91 H 12/11/24 15:16 Pulse Oximetry 96 12/11/24 15:16 Oxygen Delivery Method Room Air 12/11/24 15:16 Course Vital Signs Vital signs: Vital Signs - 8 hr 12/11/24 15:16 Temperature 97.9 F Pulse Rate 84 Respiratory Rate 18 Blood Pressure 135/91 H Pulse Oximetry 96 Oxygen Delivery Method Room Air MDM - Dental/Oral MDM Narrative Medical decision making narrative: ED course: this is a 39-year-old female presents to the emergency department due to suspected dental infection. No evidence of any abscesses that would benefit from incision and drainage. Oral antibiotics prescribed. CC: Dental pain Complicating co-morbidities: none Data collected from: Previous notes Medical records reviewed: Patient was last seen here about 5 months ago due to right upper extremity pain. No pertinent medical history. Differential considered, but not limited to: dental infection, periodontal abscess, osteomyelitis Exam documented above, pertinent findings include: moderate erythema affecting left lower gumline, no abscesses. Lab Test results independently reviewed as above. Pertinent findings: None obtained Imaging studies independently reviewed: none obtained Scores Used: None MIPS Elements: None Consultations: None Treatments: none Re-evaluations: none Discussion: Discussed plan with the patient was comfortable with the plan Diagnosis: dental infection Disposition: see below, along with detailed discharge instructions that have been reviewed with patient as well as indications for ED re-evaluation and additional outpatient follow up Discharge Plan Departure Patient Disposition: Home Clinical Impression: Dental infection Instructions: DI for Dental Pain Activity Restrictions/Additional Instructions: Thank you for coming to the [facility] Emergency Department today. please take the oral antibiotics as prescribed. I do recommend follow up de ntist as they will be the ultimate answer to your dental problems. Please return to the emergency department if you develop any Difficulty breathing or swallowing, or any other concerning signs or symptoms. I hope you feel better soon. Please follow up with your primary care provider within a week if your symptoms continue. If you do not have a primary care provider please contact the [facility] Resource line at [phone]. They will ask some questions about your medical history and help you get set up with a provider in the community. Prescriptions: New amoxicillin-pot clavulanate 875-125 mg tablet 1 tab PO BID Qty: 20 0RF No Action ketorolac 10 mg tablet 10 mg PO Q6H PRN (Reason: pain) Qty: 14 0RF hydrocodone-acetaminophen 5-325 mg tablet 1 tab PO Q6H PRN (Reason: pain) Qty: 10 0RF ondansetron 4 mg tablet,disintegrating 4 mg PO Q8H PRN (Reason: nausea and vomiting) Qty: 10 0RF hydrocodone-acetaminophen 5-325 mg tablet 1 tab PO Q4-6H PRN (Reason: pain) Qty: 14 0RF Referrals: Mason Jeong MD [Primary Care Provider] - Stand Alone Forms: Patient Portal/API/Survey
== END 2024-12-11 15:37 | disposition home or self-care (01) ==
PROVIDERS: Emergency Provider Physician Assistant Medical; PCP Nurse Practitioner Family
DX: K04.7 Periapical abscess without sinus (principal)
CPT/HCPCS: 99281

== ENCOUNTER 2025-04-17 17:18 | Emergency (ER) | payer OTHER, SELFPAY ==
[2025-04-17 17:20] VITALS: BP 118/79; PULSE 73; RESP 18; TEMP 36.8; O2SAT 99; BMI 34.1
--- NOTE | 2025-04-17 17:40 | ED_ITS ---
<Statement entered by Lauro Keys, DO - 04/17/25 18:31> Co-sign statement: I was available for consultation during this patient's emergency department visit. This chart is being signed by myself for administrative purposes only. I do not have direct contact with this patient during this visit. They were seen independently by the APC. HPI - Extremity Problem General Chief complaint: Extremity Problem,Nontraumatic Stated complaint: Joint Swelling/ Pain Time Seen by Provider: 04/17/25 17:39 Source: patient Mode of arrival: Ambulatory History of Present Illness HPI Narrative: This is a 39-year-old female presents emergency department due to diffuse swelling onset yesterday. History of rheumatoid arthritis which she sits consistent with flare she was had in the past. She reports swelling in her bilateral ankles, right knee, bilateral hands. She was wearing a ring that she was unable to take off but declined to have it cut off. Denies any chest pain, shortness breath, nausea, bowel moving, or any other systemic symptoms. He was not on a DMARD. 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 Related Data Previous Rx's ?Medication ?Instructions ?Recorded ketorolac 10 mg tablet 10 mg PO Q6H PRN pain #14 ta bs 01/08/21 hydrocodone 5 mg-acetaminophen 325 1 tab PO Q6H PRN pa in #10 tabs 10/23/23 mg tablet ondansetron 4 mg disintegrating 4 mg PO Q8H PRN nausea and 10/23/23 tablet vomiting #10 tabs hydrocodone 5 mg-acetaminophen 325 1 tab PO Q4-6H PRN pain #14 tabs 08/01/24 mg tablet amoxicillin 875 mg-potassium 1 tab PO BID #20 tabs 03/02 clavulanate 125 mg tablet prednisone 20 mg tablet 20 mg PO DAILY 10 days #10 t abs 04/17/25 Allergies Allergy/AdvReac Type Severity Reaction Status Date / Time baclofen Allergy Hallucinati Verified 08/01/24 12:04 ng Review of Systems Review of Systems Narrative: GENERAL: Denies chills, fatigue, malaise, fever, sweats. HEENT: Denies sinus pain, ear pain, sore throat, difficulty swallowing, dizziness. RESPIRATORY: Denies dyspnea, cough, wheezing, hemoptysis, sputum. CARDIOVASCULAR: Denies chest pain, palpitations, orthopnea, edema, GASTROINTESTINAL: Denies nausea, vomiting, abdominal pain, diarrhea, constipation, melena. : Denies dysuria, frequency, incontinence, hematuria, urinary retention. MUSCULOSKELETAL: Swelling in multiple joints SKIN: Denies rash, skin lesions, or other NEUROLOGIC: Denies weakness, headache, numbness, change in speech, confusion, seizures, incoordination. PSYCHIATRIC: No concerning psychosocial issues. 12 point review of systems is negative except for those stated above Patient History Smoking Status: Never smoker alcohol intake frequency: holidays/special occasions only Exam Narrative Exam Narrative: GENERAL: Well-developed patient, in mild distress. HEAD: Atraumatic. Normocephalic. EYES: Pupils equal round and reactive. Extraocular motions intact. No scleral icterus. No injection or drainage. ENT: Nose without bleeding, purulent drainage. Throat without erythema, tonsillar hypertrophy or exudate. Airway patent. NECK: Trachea midline. Non tender EXTREMITIES: Very mild swelling noted to the bilateral ankles as well as bilateral fingers and hands. Neurovascularly intact throughout. There was a ring in place but still neurovascularly intact with good recovery refill distally NEURO: AOx3. SKIN: No rash or erythema of visible areas Initial Vital Signs Initial Vital Signs: Vital Signs Temperature 98.2 F 04/17/25 17:20 Pulse Rate 73 04/17/25 17:20 Respiratory Rate 18 04/17/25 17:20 Blood Pressure 118/79 04/17/25 17:20 Pulse Oximetry 99 04/17/25 17:20 Oxygen Delivery Method Room Air 04/17/25 17:20 Course Vital Signs Vital signs: Vital Signs - 8 hr 04/17/25 17:20 Temperature 98.2 F Pulse Rate 73 Respiratory Rate 18 Blood Pressure 118/79 Pulse Oximetry 99 Oxygen Delivery Method Room Air MDM - Extremity (Nontraumatic) Lab Data Labs: Point of Care Testing Test Results Negative MDM Narrative Medical decision making narrative: ED course: This is a 39-year-old female presenting to the emergency department due suspected rheumatoid arthritis flare-up. Short course of prednisone will be prescribed as well as instructions use [id number] anti-inflammatories. Did recommend she follow up with the primary care provider for long-term management to avoid any future flare-ups in the future. Patient declined to have a ring cut off. CC: Joint swelling Complicating co-morbidities: History rheumatoid arthritis Data collected from: Previous notes Medical records reviewed: Patient was last seen in this emergency department 4 months ago due to dental pain. No pertinent medical history. Differential considered, but not limited to: Rheumatoid arthritis Exam documented above, pertinent findings include: Diffuse joint swelling Lab Test results independently reviewed as above. Pertinent findings: None obtained Imaging studies independently reviewed: None obtained Scores Used: None MIPS Elements: None Consultations: None Treatments: None Re-evaluations: None Discussion: Discussed plan with the patient was comfortable with the plan Diagnosis: Rheumatoid arthritis flare Disposition: see below, along with detailed discharge instructions that have been reviewed with patient as well as indications for ED re-evaluation and additional outpatient follow up Discharge Plan Departure Patient Disposition: Home Clinical Impression: Flare of rheumatoid arthritis Activity Restrictions/Additional Instructions: Thank you for coming to the [facility] Emergency Department today. Seems like you are having a flare-up of you are rheumatoid arthritis although it maybe due to the extra salt even taking your electrolyte drinks. I recommend a normal diet of water and food. I have also prescribed prednisone to treat any rheumatoid flare-up. Please follow up with the primary care provider for long- term management of your rheumatoid arthritis. Please return to the emergency department if you develop any chest pain, shortness breath, or any other concerning signs or symptoms. I hope you feel better soon. Please follow up with your primary care provider within a week if your symptoms continue. If you do not have a primary care provider please contact the [facility] Resource line at [phone]. They will ask some questions about your medical history and help you get set up with a provider in the community. Prescriptions: New prednisone 20 mg tablet 20 mg PO DAILY 10 Days Qty: 10 0RF No Action ketorolac 10 mg tablet 10 mg PO Q6H PRN (Reason: pain) Qty: 14 0RF hydrocodone-acetaminophen 5-325 mg tablet 1 tab PO Q6H PRN (Reason: pain) Qty: 10 0RF ondansetron 4 mg tablet,disintegrating 4 mg PO Q8H PRN (Reason: nausea and vomiting) Qty: 10 0RF hydrocodone-acetaminophen 5-325 mg tablet 1 tab PO Q4-6H PRN (Reason: pain) Qty: 14 0RF amoxicillin-pot clavulanate 875-125 mg tablet 1 tab PO BID Qty: 20 0RF Referrals: Brittney Calhoun ARNP [Primary Care Provider, Medical] Stand Alone Forms: Patient Portal/API
== END 2025-04-17 18:05 | disposition home or self-care (01) ==
PROVIDERS: Emergency Provider Physician Assistant Medical; PCP Nurse Practitioner Family
DX: M06.9 Rheumatoid arthritis, unspecified (principal)
CPT/HCPCS: 81025; 99281; 99282

== ENCOUNTER 2025-04-18 15:24 | Emergency (ER) | payer OTHER, SELFPAY ==
[2025-04-18 15:42] VITALS: BP 117/65; PULSE 86; RESP 15; TEMP 36.6; O2SAT 97; BMI 34.1
--- NOTE | 2025-04-18 17:49 | ED.WOUNDLAC ---
HPI - Wound/Laceration General Chief Complaint: Wound/Laceration Stated Complaint: Lt hand wound Time Seen by Provider: 04/18/25 17:48 Source: patient Mode of arrival: Family Vehicle History of Present Illness HPI narrative: Ms. Aly is a very pleasant 39-year-old female with a past medical history of rheumatoid arthritis and fibromyalgia who presents to the emergency department for a left hand laceration that occurred due to a box cutting knife at work prior to arrival. 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 She is unsure of her last Tdap and would like it updated. She still has full flexion and extension of her hand but does report some numbness on the index finger. Bleeding is controlled at this time. No hx of DM. Related Data Previous Rx's ?Medication ?Instructions ?Recorded ketorolac 10 mg tablet 10 mg PO Q6H PRN pain #14 tabs 01/08/21 hydrocodone 5 mg-acetaminophen 325 1 tab PO Q6H PRN pain #10 tabs 10/23/23 mg tablet ondansetron 4 mg disintegrating 4 mg PO Q8H PRN nausea and 10/23/23 tablet vomiting #10 tabs hydrocodone 5 mg-acetaminophen 325 1 tab PO Q4-6H PRN pain #14 tabs 08/01/24 mg tablet amoxicillin 875 mg-potassium 1 tab PO BID #20 tabs 12/11/24 clavulanate 125 mg tablet prednisone 20 mg tablet 20 mg PO DAILY 10 days #10 tabs 04/17/25 Allergies Allergy/AdvReac Type Severity Reaction Status Date / Time baclofen Allergy Hallucinati Verified 04/18/25 15:43 ng Review of Systems Review of Systems ROS Unobtainable: All systems reviewed & are unremarkable except as noted in HPI and below Patient History alcohol intake frequency: holidays/special occasions only Exam Narrative Exam Narrative: GENERAL: 39 year old patient appears stated age. Well-developed patient, in no acute distress. HEAD: Atraumatic. Normocephalic. NECK: Trachea midline. Cervical ROM intact. CARDIOVASCULAR: Regular rate RESPIRATORY: ?Nonlabored respirations. ?Speaking in clear, full sentences. EXTREMITIES: On the dorsal left hand, there is a 2.5 cm linear laceration in the 1st webspace. Bleeding is controlled during exam. Patient still has full flexion and extension of the left hand and phalanxes. Sensation intact in the 1st webspace, on the thumb and index finger. Brisk capillary refill distal to the wound and strong radial pulse. Patient does have a ring in place on 4th finger that she declines removing. NEURO: AOx3. ?Clear speech. ?Moves all 4 extremities appropriately. SKIN: No rash or erythema of visible areas. Dorsal L hadn lac described above. Initial Vital Signs Initial Vital Signs: Vital Signs Temperature 97.8 F 04/18/25 15:42 Pulse Rate 86 04/18/25 15:42 Respiratory Rate 15 04/18/25 15:42 Blood Pressure 117/65 04/18/25 15:42 Pulse Oximetry 97 04/18/25 15:42 Oxygen Delivery Method Room Air 04/18/25 15:42 Procedures Laceration Repair Laceration 1: Site: hand Side (If applicable): left Size (cm): 2.5 Description: linear Depth: simple, single layer Local Anesthetic: lidocaine 1% and with epi Amount of anesthesia used (mL): 5 Pre-repair: wound explored, irrigated extensively, deep structures intact and cleansed with chlorhexadine Skin layer closed with: nylon Skin layer suture size: 4-0 Number of sutures: 5 Technique: simple, interrupted Course Orders Ordered: Discontinued Medications Hydrocodone Bitart/Acetaminophen (Hydrocodone/Acet 5/325 Tablet) 1 tab PO NOW ONE Stop: 04/18/25 18:35 Last Admin: 04/18/25 18:38 Dose: 1 tab Documented By: RUPERT Bacitracin (Bacitracin Oint 0.9 Gm Pckt) 1 applic TOP NOW ONE Stop: 04/18/25 18:56 Diphtheria/Tetanus/Acell Pertussis (Tet,Diph,Pertuss(Acell),Vac/Pf 0.5 Ml Syringe) 0.5 ml IM .ONCE ONE Stop: 04/18/25 18:04 Last Admin: 04/18/25 18:09 Dose: 0.5 ml Documented By: RUPERT Tetanus/Diphtheria Toxoids (Tetanus Diphtheria Toxoids 0.5 Ml Vial) 0.5 ml IM .ONCE ONE Stop: 04/18/25 18:00 Vital Signs Vital signs: Vital Signs - 8 hr 04/18/25 15:42 Temperature 97.8 F Pulse Rate 86 Respiratory Rate 15 Blood Pressure 117/65 Pulse Oximetry 97 Oxygen Delivery Method Room Air MDM - Wound/Laceration Medical Records Attestation: I reviewed the patient's medical records. [facility] Narrative Medical decision making narrative: 39-year-old female with a past medical history of rheumatoid arthritis and fibromyalgia who presents to the emergency department for a left hand laceration that occurred due to a box cutting knife at work prior to arrival. Differential diagnosis includes but isn't limited to laceration, foreign body, etc. On exam patient is in no acute distress, nontoxic appearing, vital signs within normal limits. She has a 2.5 cm linear laceration of the dorsal aspect of the left hand overlying the 1st webspace area. Left hand is neurovascularly intact with full flexion and extension intact. Bleeding is controlled. We will update Tdap, anesthetized wound and repair. Patient requesting pain medication as well. Wound was anesthetized, irrigated, cleansed and approximated using 5 simple interrupted sutures. Recommended suture removal in 5 days. Discussed proper wound care and signs and symptoms of infection and reasons to return to the ED. Patient requested discharge from the ED prior to having a wound dressing placed by nursing staff, she placed her own dressing and then left the ED. She was in stable condition for discharge home. Discharge Plan Departure Patient Disposition: Home Clinical Impression: Laceration of hand, left Qualifiers: Encounter type: initial encounter Foreign body presence: without foreign body Qualified Code(s): S61.412A - Laceration without foreign body of left hand, initial encounter Instructions: DI for Laceration Repair Activity Restrictions/Additional Instructions: Dear Ms. Aly, Thank you for coming to the emergency department. Today you had a laceration to your left hand. We have placed 5 sutures. They need to be removed in about 10 days. You may do this in your doctor's office, the [id number], or here if necessary. Please keep the dressing on your wound clean, dry, and intact for the next 24 hours. After this time, you may remove the dressing and gently clean the wound with soap and water, then pat dry. Keep the wound clean and covered. Avoid soaking the wound in any water such as a bath, pool, or the ocean. If you develop any signs of wound infection such as increased redness, pus drainage, streaking redness, or fevers, please return to the ER immediately for evaluation. Once sutures are removed and the wound has healed, apply sunscreen daily to reduce the appearance of scars. We updated your tetanus shot today. Please take Ibuprofen (Motrin/Advil) or Acetaminophen (Tylenol) for pain. These are available over the counter. You may take Ibuprofen 600 mg every 8 hours with food for pain. You may also take Acetaminophen 650 mg every 4-6 hours for pain. Do not exceed 3000 mg of Tylenol a day as this can cause liver damage. Do not drink alcohol with either of these medications. Please follow up with your primary care doctor within the next 2-3 days for ER follow-up. (If you do not have a PCP you can call [phone]. ?to schedule an appointment with an [facility] Primary Care Provider) IF YOU DEVELOP ANY NEW OR WORSENING SYMPTOMS, RETURN TO THE ER! Please read the attached instructions, they highlight more specific treatments and interventions for you at home. Thank you for letting me participate in your care, Piper Palencia PA-C Prescriptions: No Action ketorolac 10 mg tablet 10 mg PO Q6H PRN (Reason: pain) Qty: 14 0RF hydrocodone-acetaminophen 5-325 mg tablet 1 tab PO Q6H PRN (Reason: pain) Qty: 10 0RF ondansetron 4 mg tablet,disintegrating 4 mg PO Q8H PRN (Reason: nausea and vomiting) Qty: 10 0RF hydrocodone-acetaminophen 5-325 mg tablet 1 tab PO Q4-6H PRN (Reason: pain) Qty: 14 0RF prednisone 20 mg tablet 20 mg PO DAILY 10 Days Qty: 10 0RF amoxicillin-pot clavulanate 875-125 mg tablet 1 tab PO BID Qty: 20 0RF Referrals: Brittney Calhoun ARNP [Primary Care Provider, Medical] Stand Alone Forms: Patient Portal/API
[2025-04-18] MEDS: TET,DIPH,PERTUSS(ACELL),VAC/PF 0.5 ML SYRINGE IM (18:09)
[2025-04-18] MEDS: HYDROCODONE/ACET 5/325 TABLET 1 TAB PO (18:38)
[2025-04-18 19:40] VITALS: BP 119/75; PULSE 68; RESP 14; O2SAT 95
== END 2025-04-18 19:46 | disposition home or self-care (01) ==
PROVIDERS: Emergency Provider Physician Assistant; PCP Nurse Practitioner Family
DX: S61.412A Laceration without foreign body of left hand, initial encounter (principal); W26.0XXA Contact with knife, initial encounter; Y99.0 Civilian activity done for income or pay; Z23 Encounter for immunization
CPT/HCPCS: 12001; 90471; 99283; 99284; 90715